=== PATIENT | male | born 2000 | race Caucasian/White ===

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

== ENCOUNTER 2023-02-17 04:00 | Emergency (ER) | payer OTHER, SELFPAY ==
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
[2023-02-17] MEDS ORDERED: LIDOCAINE 1% MPF 30 ML VIAL ONE (04:34)
[2023-02-17] MEDS ORDERED: MORPHINE 4 MG/ML SYR ONE (04:34)
[2023-02-17] MEDS ORDERED: ONDANSETRON 4 MG/2 ML VIAL ONE (04:34)
[2023-02-17] MEDS ORDERED: KETOROLAC 30 MG/ML INJ ONE (04:34)
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
[2023-02-17] MEDS ORDERED: SMZ./TMP. 800/160 MG TABLET ONE (06:31)
[2023-02-17 06:33] VITALS: TEMP 99.1
[2023-02-17 06:35] VITALS: BP 123/62
[2023-02-17 06:37] VITALS: O2SAT 100
--- NOTE | 2023-02-17 11:26 | RAD REPORT ---
EXAM DESCRIPTION: RAD - Hand Right 3 View - 02/17/2023 4:51 am COMPARISON: None. CLINICAL HISTORY: [facility] R hand FINDINGS: 5 views of the right hand demonstrate no acute fracture or dislocation. No significant jen nt effusion. Soft tissues are unremarkable. IMPRESSION: No acute findings of the right hand. Electronically signed by: Kaushik Valadez MD 02/17/2023 7:07 AM CDT Due to temporary technical issues with the PACS/Fluency reporting system, reports are being signed by the in house radiologist without review as a courtesy to ensure prompt reporting. The interpreting r adiologist is fully responsible for the content of the report.
--- NOTE | 2023-02-17 11:49 | RAD REPORT ---
EXAM DESCRIPTION: RAD - Forearm Right - 02/17/2023 4:51 am CLINICAL HISTORY: [facility] COMPARISON: None. TECHNIQUE: XR FOREARM 02/17/2023 4:19 AM CDT FINDINGS: There is no fracture. Joint spaces are preserved. There is mild soft tissue swelling larry rounding the wrist. IMPRESSION: No acute osseous findings. Electronically signed by: Alex Cortez MD 02/17/2023 6:11 AM CDT Due to temporary technical issues with the PACS/Fluency reporting system, reports are being signed by the in house radiologist without review as a courtesy to ensure prompt reporting. The interpreting r adiologist is fully responsible for the content of the report.
== END 2023-02-17 06:29 | disposition home or self-care (01) ==
LOC: ER 04:00
PROC: 0HQFXZZ Repair Right Hand Skin, External Approach (ICD-10-PCS; principal; 2023-02-17)
DX: S61.411A Laceration without foreign body of right hand, initial encounter (principal); S60.511A Abrasion of right hand, initial encounter; W23.0XXA Caught, crushed, jammed, or pinched between moving objects, initial encounter
CPT/HCPCS: 96374; 96375; 99284; J2001; J2405